=== PATIENT | female | born 1955 | race Caucasian/White ===

== ENCOUNTER 2022-08-10 11:15 | Outpatient (RCR) | payer MEDICARE, SELFPAY | END 2022-10-02 09:57 | disposition home or self-care (01) | PROVIDERS: PCP Family Medicine; Visit Provider Family Medicine | DX: M17.12 Unilateral primary osteoarthritis, left knee (principal); M25.562 Pain in left knee; Z51.89 Encounter for other specified aftercare | CPT/HCPCS: 97110; 97161 ==

== ENCOUNTER 2025-04-05 08:45 | Outpatient (RCR) | payer MEDICARE, SELFPAY | END 2025-06-26 09:07 | disposition home or self-care (01) | PROVIDERS: PCP Family Medicine; Visit Provider Family Medicine | DX: M25.512 Pain in left shoulder (principal); Z51.89 Encounter for other specified aftercare | CPT/HCPCS: 97110; 97161 ==